=== PATIENT | female | born 1995 | race Caucasian/White ===

== ENCOUNTER 2017-04-23 15:21 | Emergency (ER) | payer OTHER ==
[2017-04-23 15:41] VITALS: BP 106/68; BMI 37.8
[2017-04-23 15:49] LABS: BILIRUBIN,URINE NEGATIVE (NEGATIVE); BLOOD/HEMOGLOBIN,URINE NEGATIVE (NEGATIVE); GLUCOSE, URINE NEGATIVE (NEGATIVE); KETONES,URINE 1+ (NEGATIVE); LEUKOCYTE ESTERASE ,URINE 1+ (NEGATIVE); NITRITES,URINE NEGATIVE (NEGATIVE); PH,URINE 6.5 (5.0 - 8.0); PROTEIN,URINE 2+ (NEGATIVE); UROBILINOGEN,URINE 1+ (NORMAL)
[2017-04-23 15:51] LABS: APPEARANCE,URINE HAZY (CLEAR); COLOR,URINE YELLOW (YELLOW)
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
== END 2017-04-23 17:04 | disposition home or self-care (01) ==
LOC: ER 15:35
DX: Z04.3 Encounter for examination and observation following other accident (principal); Z3A.22 22 weeks gestation of pregnancy; B99.9 Unspecified infectious disease; M54.5 Low back pain; V49.9XXA Car occupant (driver) (passenger) injured in unspecified traffic accident, initial encounter
CPT/HCPCS: 76815; 81003; 99283; 99284